=== PATIENT | female | born 1995 | race Caucasian/White ===

== ENCOUNTER 2021-09-06 05:42 | Inpatient (IN) | payer OTHER ==
[~2021-09-06] VITALS: Ht 170.2 cm; Wt 74.8 kg
[2021-09-06 07:35] LABS: BILIRUBIN NEGATIVE (NEGATIVE); BLOOD NEGATIVE Ery/uL (NEGATIVE); CLARITY CLEAR (CLEAR); COLOR YELLOW (YELLOW); GLUCOSE (U) NORMAL (NORMAL); HCT 34.5 % (37.0-47.0); HGB 11.5 g/dl (12.5-16.0); LEUKOCYTES NEGATIVE Leu/uL (NEGATIVE); MCH 30.2 pg (25.0-31.0); MCHC 33.3 g/dL (32.0-36.0); MCV 90.6 fL (78.0-100.0); NITRITE NEGATIVE (NEGATIVE); PROTEIN NEGATIVE (NEGATIVE); RBC 3.81 M/uL (4.20-5.40); RDW 12.9 % (11.5-14.0); UROBILINOGEN 0.2 mg/dL (0.2-1.0); WBC 15.8 K/uL (4.0-10.5); pH 7.5 (5.0-9.0)
[2021-09-07 06:16] LABS: HCT 26.5 % (37.0-47.0); HGB 8.9 g/dl (12.5-16.0); MCHC 33.6 g/dL (32.0-36.0); MCV 89.2 fL (78.0-100.0); MPV 11.4 fL (6.0-9.5); RBC 2.97 M/uL (4.20-5.40); RDW 12.6 % (11.5-14.0); WBC 15.4 K/uL (4.0-10.5)
== END 2021-09-08 16:00 | disposition home or self-care (01) | DRG 806 ==
LOC: FOD 05:42 → FOB 05:43 → FOD 06:54 → FOB 06:55
PROVIDERS: ADMIT Obstetrics & Gynecology
PROC: 10D07Z6 Extraction of Products of Conception, Vacuum, Via Natural or Artificial Opening (ICD-10-PCS; principal; 2021-09-06)
PROC: 0W8NXZZ Division of Female Perineum, External Approach (ICD-10-PCS; 2021-09-06)
DX: O76 Abnormality in fetal heart rate and rhythm complicating labor and delivery (principal); D62 Acute posthemorrhagic anemia; Z37.0 Single live birth; Z3A.38 38 weeks gestation of pregnancy; O99.52 Diseases of the respiratory system complicating childbirth; J45.909 Unspecified asthma, uncomplicated; O90.81 Anemia of the puerperium; Z20.822 Contact with and (suspected) exposure to COVID-19; Z86.16 Personal history of COVID-19
CPT/HCPCS: 36415; 81003; J2001; J2916; U0002